=== PATIENT | male | born 1980 ===

== ENCOUNTER → 2017-12-22 | Day surgery (SDC) | payer OTHER | END | disposition home or self-care (01) | LOC: ADM 12-20 14:00 → AMB-ENDOS 05:46 | DX: D12.0 Benign neoplasm of cecum (principal); D12.2 Benign neoplasm of ascending colon ==

== ENCOUNTER 2020-04-10 06:23 | Day surgery (SDC) | payer OTHER ==
[2020-04-10] MEDS ORDERED: PROTONIX40 MG PO (09:09)
[2020-04-10] MEDS ORDERED: CARAFATE1 GM PO (09:10)
== END 2020-04-10 10:40 | disposition home or self-care (01) ==
LOC: AMB-ENDOS 06:23
PROVIDERS: ATTEND Surgery
DX: K31.7 Polyp of stomach and duodenum (principal); Z20.822 Contact with and (suspected) exposure to COVID-19